=== PATIENT | male | born 1950 | race Two or more races ===

== ENCOUNTER 2023-05-10 04:06 | Day surgery (SDC) | payer OTHER ==
[2023-05-08 15:39] VITALS: BMI 23.3
[2023-05-10] MEDS ORDERED: ceFAZolin SODIUM 1 GM VIAL ONE (08:45)
[2023-05-10] MEDS ORDERED: ONDANSETRON 4 MG/2 ML VIAL ONE (08:45)
[2023-05-10] MEDS ORDERED: LIDOCAINE HCL/PF 2% SDV 5ML VIAL ONE (08:45)
[2023-05-10] MEDS ORDERED: PROPOFOL 40 ML ONE (08:45)
[2023-05-10] MEDS ORDERED: MIDAZOLAM HCL 2 MG/2 ML SINGLE DOSE VIAL ONE (08:45)
[2023-05-10] MEDS ORDERED: ceFAZolin SODIUM 1 GM VIAL IVPB ONE ×2 (09:08→09:28)
[2023-05-10] MEDS ORDERED: LIDOCAINE HCL 1%, 10 MG/ML (20ML VIAL) NR ONE ×3 (09:08→09:33)
[2023-05-10] MEDS ORDERED: HEPARIN NA (PORCINE) 5,000 UNITS/ML 1ML VIAL SQ ONE ×2 (09:09→09:34)
[2023-05-10] MEDS ORDERED: HEPARIN NA (PORCINE) 5,000 UNITS/ML 1ML VIAL ONE (09:12)
[2023-05-10] MEDS ORDERED: LIDOCAINE HCL 1%, 10 MG/ML (10ML VIAL) MDV ONE (09:47)
[2023-05-10] MEDS ORDERED: oxyCODONE HCL 5 MG TABLET PO PRN ×2 (10:00)
[2023-05-10] MEDS ORDERED: ONDANSETRON 4 MG/2 ML VIAL IVPUSH PRN (10:00)
[2023-05-10] MEDS ORDERED: LACTATED RINGERS SOLUTION 1,000 ML IV SCH (10:00)
[2023-05-10 14:54] VITALS: RESP 16; TEMP 97.6
[2023-05-10 14:58] VITALS: BP 134/64; PULSE 74
== END 2023-05-10 12:35 | disposition home or self-care (01) ==
LOC: JASU-SURG 04:06
PROVIDERS: ATTEND Surgery Vascular Surgery
PROC: B41DYZZ Fluoroscopy of Aorta and Bilateral Lower Extremity Arteries using Other Contrast (ICD-10-PCS; principal; 2023-05-10 09:30)
DX: I70.212 Atherosclerosis of native arteries of extremities with intermittent claudication, left leg (principal)
CPT/HCPCS: 76000-TC-FY; 82962; 94010; 94760; C1760; C1769; J1644

== ENCOUNTER 2023-07-04 07:45 | Inpatient (IN) | payer OTHER ==
[2023-07-04] MEDS ORDERED: ACETAMINOPHEN 1000 MG/100 ML BAG IVPB ONE ×2 (08:26→08:47)
[2023-07-04] MEDS ORDERED: LACTATED RINGERS SOLUTION 1000 ML INFUS.BAG IV ONE (08:26)
[2023-07-04] MEDS ORDERED: ALBUTEROL SO4 2.5/IPRATROPIUM 0.5 INH SOL 3 ML VIAL.NEB. NEB SCH (08:30)
[2023-07-04] MEDS ORDERED: ACETAMINOPHEN INJECTION 100 ML IVPB ONE (08:45)
[2023-07-04 09:37] LABS: BASO % 1.1 % (0-2.0); EOS % 6.3 % (0-4.5); HEMATOCRIT 35.7 % (35.4-49); LYMPH % 26.4 % (8-40); MCH 33.8 pg (25.7-33.7); MCHC 33.7 g/dl (32.0-35.9); MEAN CELL VOLUME 100.4 fl (80-96); MEAN PLT VOLUME 9.7 fl (7.5-11.1); NEUT % 56.2 % (42.8-82.8); PLATELET COUNT 120 10^3/uL (134-434); RBC 3.55 M/mm3 (4.00-5.60); RDW 14.3 % (11.9-15.9); WHITE BLOOD COUNT 5.6 K/mm3 (4.0-10.0)
[2023-07-04 09:39] LABS: INR 1.04 (0.83-1.09); PROTHROMBIN TIME (PATIENT) 12.1 SEC (9.7-13.0)
[2023-07-04 09:41] LABS: ACTIVATED PTT 27.9 SECONDS (25.2-36.5)
[2023-07-04 09:58] LABS: POTASSIUM 4.6 mmol/L (3.5-5.1)
[2023-07-04 10:00] LABS: CALCIUM 8.8 mg/dL (8.5-10.1)
[2023-07-04 10:01] LABS: ALBUMIN 3.2 g/dl (3.4-5.0); BLOOD UREA NITROGEN 13.4 mg/dL (7-18)
[2023-07-04 10:04] LABS: CREATININE 1.2 mg/dL (0.55-1.3)
[2023-07-04 10:05] LABS: BILIRUBIN,TOTAL 0.4 mg/dL (0.2-1)
[2023-07-04 10:06] LABS: TOT PROT 6.8 g/dl (6.4-8.2)
[2023-07-04] MEDS ORDERED: LORazepam 0.5 MG TABLET PO PRN ×2 (14:31→15:37)
[2023-07-04] MEDS ORDERED: BUDESONIDE/FORMETEROL FUMARATE 80/4.5 mcg INHALER IH PRN (14:33)
[2023-07-04] MEDS ORDERED: ALBUTEROL SO4 HFA INHALER IH PRN ×2 (14:37→14:40)
[2023-07-04] MEDS: HEPARIN NA (PORCINE) 5,000 UNITS/ML 1ML VIAL SQ SCH ×2 (15:46→21:38)
[2023-07-05] MEDS ORDERED: SODIUM CHLORIDE 1,000 ML IV SCH ×2 (06:00→12:44)
[2023-07-05] MEDS ORDERED: HEPARIN NA (PORCINE) 5,000 UNITS/ML 1ML VIAL ONE (07:17)
[2023-07-05] MEDS ORDERED: POVIDONE-IODINE OINTMENT 10% - 28.4 GM TUBE ONE (07:17)
[2023-07-05] MEDS ORDERED: CEFAZOLIN SODIUM 2 GM in DEXTROSE 5%-WATER 100 ML IVPB ONE (07:45)
[2023-07-05] MEDS ORDERED: HYDROmorphone HCl 2 MG/ML VIAL ONE (10:00)
[2023-07-05] MEDS ORDERED: amLODIPine BESYLATE 10 MG TABLET (FP) PO SCH ×2 (10:00)
[2023-07-05] MEDS ORDERED: LISINOPRIL 20 MG TABLET PO SCH (10:00)
[2023-07-05] MEDS ORDERED: MIDAZOLAM HCL 2 MG/2 ML SINGLE DOSE VIAL ONE (10:00)
[2023-07-05] MEDS ORDERED: LISINOPRIL 10 MG TABLET PO SCH (10:00)
[2023-07-05] MEDS ORDERED: ceFAZolin SODIUM 1 GM VIAL IVPB ONE (10:35)
[2023-07-05] MEDS ORDERED: ROCURONIUM BROMIDE 50 MG/5 ML SYRINGE ONE (11:20)
[2023-07-05] MEDS ORDERED: SUGAMMADEX SODIUM 200 MG/2 ML VIAL ONE (11:56)
[2023-07-05] MEDS ORDERED: PHENYLEPHRINE HCL 10 MG/1 ML SINGLE DOSE VIAL ONE (12:06)
[2023-07-05] MEDS ORDERED: ALBUTEROL SO4 HFA INHALER IH PRN (12:44)
[2023-07-05] MEDS ORDERED: LORazepam 0.5 MG TABLET PO PRN (12:44)
[2023-07-05] MEDS: LACTATED RINGERS SOLUTION 1,000 ML IV SCH (13:00)
[2023-07-05] MEDS ORDERED: BUDESONIDE/FORMETEROL FUMARATE 80/4.5 mcg INHALER IH PRN (13:30)
[2023-07-05] MEDS ORDERED: ACETAMINOPHEN 1000 MG/100 ML BAG IVPB PRN (17:58)
[2023-07-05 21:11] LABS: BASO % 0.3 % (0-2.0); HEMATOCRIT 31.6 % (35.4-49); HEMOGLOBIN 10.6 GM/dL (11.7-16.9); LYMPH % 7.8 % (8-40); MCH 33.3 pg (25.7-33.7); MCHC 33.6 g/dl (32.0-35.9); MEAN PLT VOLUME 9.5 fl (7.5-11.1); MONO % 6.4 % (3.8-10.2); NEUT % 85.5 % (42.8-82.8); PLATELET COUNT 100 10^3/uL (134-434); RBC 3.19 M/mm3 (4.00-5.60); RDW 14.5 % (11.9-15.9); WHITE BLOOD COUNT 8.4 K/mm3 (4.0-10.0)
[2023-07-05 21:34] LABS: POTASSIUM 4.7 mmol/L (3.5-5.1)
[2023-07-05 21:36] LABS: CALCIUM 8.2 mg/dL (8.5-10.1)
[2023-07-05 21:37] LABS: ALBUMIN 2.7 g/dl (3.4-5.0); BLOOD UREA NITROGEN 13.2 mg/dL (7-18)
[2023-07-05] MEDS: CHLORHEXIDINE GLUCONATE 4% CLEANSER FOR DECOLONIZATION TP SCH (21:37)
[2023-07-05] MEDS: MUPIROCIN 2% TOPICAL OINTMENT FOR DECOLONIZATION NS SCH (21:37)
[2023-07-05 21:40] LABS: CREATININE 1.5 mg/dL (0.55-1.3); PHOSPHOROUS 2.8 mg/dL (2.5-4.9)
[2023-07-05 21:41] LABS: TOT PROT 5.7 g/dl (6.4-8.2)
[2023-07-05 21:42] LABS: BILIRUBIN,TOTAL 0.5 mg/dL (0.2-1)
[2023-07-05 21:49] LABS: MAGNESIUM 1.4 mg/dL (1.8-2.4)
[2023-07-05] MEDS ORDERED: MAGNESIUM SULFATE IN WATER 2 GM/50 ML IVPB IVPB ONE (21:58)
[2023-07-06] MEDS: FOLIC ACID 1 MG TABLET (FP) PO SCH (09:04)
[2023-07-06] MEDS: amLODIPine BESYLATE 10 MG TABLET (FP) PO SCH (09:04)
[2023-07-06] MEDS: MULTIVITAMINS (DAILY MVI) TABLET (FP) PO SCH (09:04)
[2023-07-06] MEDS: CLOPIDOGREL BISULFATE 75 MG TABLET (FP) PO SCH (09:05)
[2023-07-06] MEDS: LACTATED RINGERS SOLUTION 1,000 ML IV SCH ×3 (09:05→23:26)
[2023-07-06] MEDS: THIAMINE HCL 100 MG TABLET (FP) PO SCH (09:05)
[2023-07-06] MEDS: MUPIROCIN 2% TOPICAL OINTMENT FOR DECOLONIZATION NS SCH ×2 (09:06→21:24)
[2023-07-06 10:29] LABS: EPI CELLS 3 /uL (0-25.1); HYALINE CASTS 0 /uL (0-3.1); PH,URINE 6.5 (5.0-8.0); URINE APPEARANCE CLEAR; URINE BACTERIA 0 /uL (0-1359); URINE BILIRUBIN NEGATIVE (NEGATIVE); URINE COLOR YELLOW; URINE GLUCOSE (UA) TRACE (NEGATIVE); URINE KETONE NEGATIVE (NEGATIVE); URINE LEUK ESTERASE TRACE (NEGATIVE); URINE NITRITE NEGATIVE (NEGATIVE); URINE PROTEIN NEGATIVE (NEGATIVE); URINE RBC 69 /uL (0-23.9); URINE UROBILINOGEN 0.2 mg/dL (0.2-1.0); URINE WBC 36 /uL (0-25.8)
[2023-07-06] MEDS ORDERED: MAGNESIUM 1GM/D5W - 1 GM/100 ML IVPB IVPB ONE (14:15)
[2023-07-06] MEDS: NICOTINE 14 MG/24 HOURS TOPICAL PATCH TD SCH (16:54)
[2023-07-06] MEDS: CHLORHEXIDINE GLUCONATE 4% CLEANSER FOR DECOLONIZATION TP SCH (21:24)
[2023-07-06] MEDS ORDERED: ACETAMINOPHEN 1000 MG/100 ML BAG IVPB PRN (23:54)
[2023-07-07 07:28] LABS: POTASSIUM 4.1 mmol/L (3.5-5.1)
[2023-07-07 07:36] LABS: ALBUMIN 2.8 g/dl (3.4-5.0); BLOOD UREA NITROGEN 13.3 mg/dL (7-18); CALCIUM 8.2 mg/dL (8.5-10.1); MAGNESIUM 1.6 mg/dL (1.8-2.4)
[2023-07-07 07:39] LABS: CREATININE 0.9 mg/dL (0.55-1.3); PHOSPHOROUS 3.5 mg/dL (2.5-4.9)
[2023-07-07 07:40] LABS: BILIRUBIN,TOTAL 0.6 mg/dL (0.2-1); TOT PROT 5.7 g/dl (6.4-8.2)
[2023-07-07 07:55] LABS: BASO % 0.9 % (0-2.0); HEMATOCRIT 30.6 % (35.4-49); HEMOGLOBIN 10.4 GM/dL (11.7-16.9); LYMPH % 27.5 % (8-40); MCH 33.8 pg (25.7-33.7); MCHC 34.1 g/dl (32.0-35.9); MEAN CELL VOLUME 98.9 fl (80-96); MEAN PLT VOLUME 10.2 fl (7.5-11.1); MONO % 9.9 % (3.8-10.2); NEUT % 58.7 % (42.8-82.8); PLATELET COUNT 86 10^3/uL (134-434); RBC 3.09 M/mm3 (4.00-5.60); RDW 14.6 % (11.9-15.9); WHITE BLOOD COUNT 9.2 K/mm3 (4.0-10.0)
[2023-07-07] MEDS: NICOTINE 14 MG/24 HOURS TOPICAL PATCH TD SCH (10:14)
[2023-07-07] MEDS: amLODIPine BESYLATE 10 MG TABLET (FP) PO SCH (10:15)
[2023-07-07] MEDS: THIAMINE HCL 100 MG TABLET (FP) PO SCH (10:15)
[2023-07-07] MEDS: MULTIVITAMINS (DAILY MVI) TABLET (FP) PO SCH (10:15)
[2023-07-07] MEDS: FOLIC ACID 1 MG TABLET (FP) PO SCH (10:15)
[2023-07-07] MEDS: CLOPIDOGREL BISULFATE 75 MG TABLET (FP) PO SCH (10:15)
[2023-07-07] MEDS: MUPIROCIN 2% TOPICAL OINTMENT FOR DECOLONIZATION NS SCH ×2 (10:16→21:08)
[2023-07-07] MEDS ORDERED: ACETAMINOPHEN 500 MG TABLET (FP) PO PRN (10:59)
[2023-07-07] MEDS: HEPARIN NA (PORCINE) 5,000 UNITS/ML 1ML VIAL SQ SCH (21:07)
[2023-07-07] MEDS: CHLORHEXIDINE GLUCONATE 4% CLEANSER FOR DECOLONIZATION TP SCH (21:07)
[2023-07-08] MEDS ORDERED: ALBUTEROL SO4 HFA INHALER IH PRN (08:53)
[2023-07-08] MEDS ORDERED: BUDESONIDE/FORMETEROL FUMARATE 80/4.5 mcg INHALER IH PRN (08:53)
[2023-07-08] MEDS ORDERED: LORazepam 0.5 MG TABLET PO PRN (08:53)
[2023-07-08] MEDS: MULTIVITAMINS (DAILY MVI) TABLET (FP) PO SCH (09:29)
[2023-07-08] MEDS: amLODIPine BESYLATE 10 MG TABLET (FP) PO SCH (09:29)
[2023-07-08] MEDS: FOLIC ACID 1 MG TABLET (FP) PO SCH (09:30)
[2023-07-08] MEDS: CLOPIDOGREL BISULFATE 75 MG TABLET (FP) PO SCH (09:30)
[2023-07-08] MEDS: HEPARIN NA (PORCINE) 5,000 UNITS/ML 1ML VIAL SQ SCH ×2 (09:30→21:54)
[2023-07-08] MEDS: NICOTINE 14 MG/24 HOURS TOPICAL PATCH TD SCH (09:30)
[2023-07-08] MEDS: MUPIROCIN 2% TOPICAL OINTMENT FOR DECOLONIZATION NS SCH ×2 (14:06→21:55)
[2023-07-08 15:09] VITALS: TEMP 98
[2023-07-08 15:49] VITALS: BMI 22.9
[2023-07-08] MEDS ORDERED: MAGNESIUM SULF 50% (8.12 MEQ/2 ML-1 GM VIAL) IVPB ONE (19:26)
[2023-07-08] MEDS: ACETAMINOPHEN 500 MG TABLET (FP) PO PRN (20:33)
[2023-07-08] MEDS ORDERED: CHLORHEXIDINE GLUCONATE 4% CLEANSER FOR DECOLONIZATION TP SCH (22:00)
[2023-07-09] MEDS: ACETAMINOPHEN 500 MG TABLET (FP) PO PRN (06:22)
[2023-07-09 07:55] LABS: BASO % 0.5 % (0-2.0); EOS % 4.9 % (0-4.5); HEMATOCRIT 32.6 % (35.4-49); HEMOGLOBIN 10.7 GM/dL (11.7-16.9); LYMPH % 23.7 % (8-40); MCH 33.2 pg (25.7-33.7); MCHC 32.8 g/dl (32.0-35.9); MEAN CELL VOLUME 101.3 fl (80-96); MEAN PLT VOLUME 10.8 fl (7.5-11.1); MONO % 12.9 % (3.8-10.2); PLATELET COUNT 135 10^3/uL (134-434); RBC 3.22 M/mm3 (4.00-5.60); RDW 14.4 % (11.9-15.9); WHITE BLOOD COUNT 8.9 K/mm3 (4.0-10.0)
[2023-07-09 07:58] LABS: POTASSIUM 4.6 mmol/L (3.5-5.1)
[2023-07-09 08:01] VITALS: RESP 18
[2023-07-09 08:01] LABS: ALBUMIN 2.9 g/dl (3.4-5.0); BLOOD UREA NITROGEN 16.4 mg/dL (7-18); MAGNESIUM 1.9 mg/dL (1.8-2.4)
[2023-07-09 08:04] LABS: CREATININE 0.9 mg/dL (0.55-1.3); PHOSPHOROUS 4.2 mg/dL (2.5-4.9)
[2023-07-09 08:06] LABS: BILIRUBIN,TOTAL 0.9 mg/dL (0.2-1); TOT PROT 6.3 g/dl (6.4-8.2)
[2023-07-09] MEDS: THIAMINE HCL 100 MG TABLET (FP) PO SCH (09:04)
[2023-07-09] MEDS: HEPARIN NA (PORCINE) 5,000 UNITS/ML 1ML VIAL SQ SCH (09:04)
[2023-07-09] MEDS: FOLIC ACID 1 MG TABLET (FP) PO SCH (09:04)
[2023-07-09] MEDS: NICOTINE 14 MG/24 HOURS TOPICAL PATCH TD SCH (09:05)
[2023-07-09] MEDS: MUPIROCIN 2% TOPICAL OINTMENT FOR DECOLONIZATION NS SCH (09:05)
[2023-07-09] MEDS: amLODIPine BESYLATE 10 MG TABLET (FP) PO SCH (09:05)
[2023-07-09] MEDS: MULTIVITAMINS (DAILY MVI) TABLET (FP) PO SCH (09:06)
[2023-07-09] MEDS: CLOPIDOGREL BISULFATE 75 MG TABLET (FP) PO SCH (09:08)
[2023-07-09] MEDS ORDERED: LISINOPRIL 20 MG TABLET PO SCH (10:00)
[2023-07-09 12:49] VITALS: BP 129/73; PULSE 108
== END 2023-07-09 14:00 | disposition home or self-care (01) | DRG 253 ==
LOC: JER 07:45 → JERBED 11:04 → OBSVTOIN 12:06 → J8W 12:39 → JICU 07-05 15:39
PROVIDERS: ADMIT Internal Medicine; ATTEND Internal Medicine
PROC: 041L4ZJ Bypass Left Femoral Artery to Left Femoral Artery, Percutaneous Endoscopic Approach (ICD-10-PCS; principal; 2023-07-05 09:30)
DX: I74.5 Embolism and thrombosis of iliac artery (principal); F10.230 Alcohol dependence with withdrawal, uncomplicated; I73.9 Peripheral vascular disease, unspecified; F17.210 Nicotine dependence, cigarettes, uncomplicated; J44.9 Chronic obstructive pulmonary disease, unspecified; I10 Essential (primary) hypertension; I49.3 Ventricular premature depolarization; R33.9 Retention of urine, unspecified; R74.01 Elevation of levels of liver transaminase levels
CPT/HCPCS: 36415; 71045-TC-FY; 80053; 81003; 82570; 83605; 83735; 84100; 84300; 85025; 85610; 85730; 86850; 86900; 86901; 86922; 87635; 88304-TC; 88311-TC; 94760; 97116-GP; 97161-GP; 99285-25; C1768; G0378; J1644

== ENCOUNTER 2024-02-04 08:47 | Inpatient (IN) | payer OTHER ==
[2024-02-04 10:27] LABS: BASO % 0.3 % (0-2.0); EOS % 0.2 % (0-4.5); HEMATOCRIT 29.8 % (35.4-49); HEMOGLOBIN 9.6 GM/dL (11.7-16.9); LYMPH % 5.1 % (8-40); MCH 28.3 pg (25.7-33.7); MCHC 32.3 g/dl (32.0-35.9); MEAN CELL VOLUME 87.4 fl (80-96); MEAN PLT VOLUME 8.9 fl (7.5-11.1); MONO % 7.6 % (3.8-10.2); NEUT % 86.8 % (42.8-82.8); PLATELET COUNT 203 10^3/uL (134-434); RBC 3.41 M/mm3 (4.00-5.60); RDW 17.3 % (11.9-15.9); WHITE BLOOD COUNT 16.1 K/mm3 (4.0-10.0)
[2024-02-04 10:34] LABS: INR 1.23 (0.83-1.09); PROTHROMBIN TIME (PATIENT) 14.2 SEC (9.7-13.0)
[2024-02-04 10:36] LABS: ACTIVATED PTT 31.7 SECONDS (25.2-36.5)
[2024-02-04 10:55] LABS: POTASSIUM 3.8 mmol/L (3.5-5.1)
[2024-02-04 11:01] LABS: BLOOD UREA NITROGEN 18.4 mg/dL (7-18); CALCIUM 8.6 mg/dL (8.5-10.1)
[2024-02-04 11:02] LABS: ALBUMIN 2.4 g/dl (3.4-5.0); MAGNESIUM 1.9 mg/dL (1.8-2.4)
[2024-02-04 11:03] LABS: BILIRUBIN,TOTAL 1.4 mg/dL (0.2-1)
[2024-02-04 11:05] LABS: CREATININE 1.1 mg/dL (0.55-1.3); PHOSPHOROUS 2.5 mg/dL (2.5-4.9)
[2024-02-04 11:06] LABS: TOT PROT 7.8 g/dl (6.4-8.2)
[2024-02-04 11:13] LABS: EPI CELLS 27 /uL (0-25.1); HYALINE CASTS 5 /uL (0-3.1); PH,URINE 5.5 (5.0-8.0); URINE APPEARANCE CLEAR; URINE BILIRUBIN 2+ (NEGATIVE); URINE COLOR ORANGE; URINE GLUCOSE (UA) NEGATIVE (NEGATIVE); URINE KETONE TRACE (NEGATIVE); URINE LEUK ESTERASE TRACE (NEGATIVE); URINE NITRITE POSITIVE (NEGATIVE); URINE PROTEIN 1+ (NEGATIVE); URINE RBC 20 /uL (0-23.9); URINE WBC 21 /uL (0-25.8)
[2024-02-04] MEDS ORDERED: AMPICILLIN NA/SULBACTAM NA 3 GM/100 ML BAG IVPB ONE (11:55)
[2024-02-04] MEDS: AMPICILLIN NA/SULBACTAM NA 3 GM in DEXTROSE 5%-WATER 100 ML IVPB ONE (12:20)
[2024-02-04] MEDS ORDERED: CLOPIDOGREL BISULFATE 75 MG TABLET (FP) ONE (14:02)
[2024-02-04] MEDS: SODIUM CHLORIDE 1,000 ML IV SCH (14:05)
[2024-02-04] MEDS: CLOPIDOGREL BISULFATE 75 MG TABLET (FP) PO SCH (14:05)
[2024-02-04] MEDS ORDERED: AMPICILLIN NA/SULBACTAM NA 3 GM in DEXTROSE 5%-WATER 100 ML IVPB SCH (15:00)
[2024-02-04] MEDS ORDERED: ALBUTEROL SO4 HFA INHALER IH PRN (15:51)
[2024-02-04 17:51] VITALS: BMI 22.6
[2024-02-04] MEDS: BUDESONIDE/FORMETEROL FUMARATE 80/4.5 mcg INHALER IH SCH (21:59)
[2024-02-05 08:17] LABS: HEMATOCRIT 26.3 % (35.4-49); HEMOGLOBIN 8.5 GM/dL (11.7-16.9); MCH 28.4 pg (25.7-33.7); MCHC 32.1 g/dl (32.0-35.9); MEAN CELL VOLUME 88.3 fl (80-96); MEAN PLT VOLUME 8.4 fl (7.5-11.1); PLATELET COUNT 190 10^3/uL (134-434); RBC 2.98 M/mm3 (4.00-5.60); RDW 17.7 % (11.9-15.9); WHITE BLOOD COUNT 15.5 K/mm3 (4.0-10.0)
[2024-02-05 08:26] LABS: INR 1.25 (0.83-1.09); PROTHROMBIN TIME (PATIENT) 14.5 SEC (9.7-13.0)
[2024-02-05 09:50] LABS: POTASSIUM 4.1 mmol/L (3.5-5.1)
[2024-02-05 09:55] LABS: ALBUMIN 2.1 g/dl (3.4-5.0); CALCIUM 8.2 mg/dL (8.5-10.1); MAGNESIUM 1.8 mg/dL (1.8-2.4)
[2024-02-05 09:56] LABS: BLOOD UREA NITROGEN 15.4 mg/dL (7-18)
[2024-02-05 09:58] LABS: CREATININE 0.9 mg/dL (0.55-1.3)
[2024-02-05 09:59] LABS: PHOSPHOROUS 3.3 mg/dL (2.5-4.9)
[2024-02-05 10:00] LABS: TOT PROT 6.5 g/dl (6.4-8.2)
[2024-02-05] MEDS: CEFTRIAXONE 1 GM in DEXTROSE 5%-WATER - 50 ML IVPB SCH (10:12)
[2024-02-05] MEDS: LISINOPRIL 20 MG TABLET PO SCH (10:13)
[2024-02-05] MEDS: ENOXAPARIN NA (PORCINE) 40 MG/0.4 ML DISP.SYRIN SQ SCH (10:13)
[2024-02-05] MEDS: amLODIPine BESYLATE 10 MG TABLET (FP) PO SCH (10:13)
[2024-02-05] MEDS: AZITHROMYCIN IVPB 500 MG/250 ML BAG IVPB SCH (12:03)
[2024-02-05] MEDS: AZITHROMYCIN IVPB 500 MG in DEXTROSE 5%-WATER - 250 ML IVPB SCH (12:03)
[2024-02-05] MEDS ORDERED: IBUPROFEN 800 MG/8 ML IJ IVPB PRN (17:06)
[2024-02-05] MEDS: PANTOPRAZOLE SODIUM 40 MG VIAL IVPUSH SCH (17:26)
[2024-02-05 19:32] LABS: SYPHILIS W/ RPR CONF REACTIVE (NONREACTIVE)
[2024-02-05 21:41] LABS: HIV INTERPRETATION PRESUMPTIVE POSITIVE (NEGATIVE)
[2024-02-05] MEDS: LACTATED RINGERS SOLUTION 1,000 ML/1,000 ML INFUS.BAG IV SCH (21:49)
[2024-02-05] MEDS: guaiFENesin/D-METHORPHAN HB 10 ML UNIT-DOSE CUPS PO PRN (21:49)
[2024-02-06] MEDS: NICOTINE 14 MG/24 HOURS TOPICAL PATCH TD SCH (10:18)
[2024-02-06] MEDS: SULFAMETHOXAZOLE/TRIMETHOPRIM 400 MG in DEXTROSE 5%-WATER - 500 ML IVPB SCH (13:20)
[2024-02-06 13:22] LABS: BASO % 0.5 % (0-2.0); EOS % 0.6 % (0-4.5); HEMATOCRIT 25.2 % (35.4-49); HEMOGLOBIN 8.2 GM/dL (11.7-16.9); LYMPH % 9.8 % (8-40); MCH 28.2 pg (25.7-33.7); MCHC 32.5 g/dl (32.0-35.9); MEAN CELL VOLUME 86.6 fl (80-96); MEAN PLT VOLUME 8.7 fl (7.5-11.1); MONO % 10.6 % (3.8-10.2); NEUT % 78.5 % (42.8-82.8); PLATELET COUNT 207 10^3/uL (134-434); RBC 2.91 M/mm3 (4.00-5.60)
[2024-02-06 14:53] VITALS: RESP 18
[2024-02-06] MEDS ORDERED: SULFAMETHOXAZOLE 80 MG/TRIMETHOPRIM 16 MG/ML VIAL IVPB SCH ×2 (18:00)
[2024-02-07] MEDS ORDERED: ACETAMINOPHEN 1000 MG/100 ML BAG IVPB PRN (07:54)
[2024-02-07] MEDS: PANTOPRAZOLE 40 MG TABLET PO SCH (09:26)
[2024-02-07] MEDS: CEFTRIAXONE 2 GM in DEXTROSE 5%-WATER 100 ML IVPB SCH (09:32)
[2024-02-08] MEDS: AZITHROMYCIN 500 MG TABLET PO SCH (09:35)
[2024-02-08] MEDS ORDERED: METHYL SALICYLATE/MENTHOL OINT 30 GM TUBE TP SCH (10:00)
[2024-02-08] MEDS ORDERED: LIDOCAINE 5% TOPICAL PATCH TP SCH (10:00)
[2024-02-08] MEDS: METHYL SALICYLATE/MENTHOL OINT 30 GM TUBE TP SCH (10:30)
[2024-02-08] MEDS ORDERED: LIDOCAINE PATCH REMOVAL MC SCH (22:00)
[2024-02-09 09:07] LABS: BASO % 0.8 % (0-2.0); EOS % 2.5 % (0-4.5); HEMATOCRIT 26.4 % (35.4-49); HEMOGLOBIN 8.5 GM/dL (11.7-16.9); LYMPH % 15.1 % (8-40); MCH 27.8 pg (25.7-33.7); MCHC 32.2 g/dl (32.0-35.9); MEAN CELL VOLUME 86.5 fl (80-96); MEAN PLT VOLUME 8.6 fl (7.5-11.1); MONO % 14.3 % (3.8-10.2); NEUT % 67.3 % (42.8-82.8); PLATELET COUNT 303 10^3/uL (134-434); RBC 3.06 M/mm3 (4.00-5.60); RDW 17.7 % (11.9-15.9); WHITE BLOOD COUNT 9.7 K/mm3 (4.0-10.0)
[2024-02-09 09:22] LABS: POTASSIUM 4.5 mmol/L (3.5-5.1)
[2024-02-09 09:26] LABS: BLOOD UREA NITROGEN 17.3 mg/dL (7-18)
[2024-02-09] MEDS: LISINOPRIL 20 MG TABLET PO SCH (11:34)
[2024-02-09] MEDS: amLODIPine BESYLATE 10 MG TABLET (FP) PO SCH (11:34)
[2024-02-09 15:12] LABS: URIC ACID 5.9 mg/dL (2.6-7.2)
[2024-02-10] MEDS: LACTOBACILLUS ACIDOPHILUS 1 TABLET PO SCH (10:49)
[2024-02-11 06:15] VITALS: TEMP 98.5
[2024-02-11 13:18] VITALS: BP 118/59; PULSE 86
== END 2024-02-11 14:46 | disposition home health service (06) | DRG 871 ==
LOC: JER 08:47 → JERBED 12:53 → J5S 15:56
PROVIDERS: ADMIT Internal Medicine
DX: A41.9 Sepsis, unspecified organism (principal); J18.9 Pneumonia, unspecified organism; J44.0 Chronic obstructive pulmonary disease with (acute) lower respiratory infection; J44.1 Chronic obstructive pulmonary disease with (acute) exacerbation; I10 Essential (primary) hypertension; I73.9 Peripheral vascular disease, unspecified; R74.01 Elevation of levels of liver transaminase levels; F10.90 Alcohol use, unspecified, uncomplicated; Z21 Asymptomatic human immunodeficiency virus [HIV] infection status
CPT/HCPCS: 0241U-QW; 36415; 71046-TC-FY; 71275-TC; 73560-TC-RT-FY; 74177-TC; 80048; 80053; 81003; 83690; 83735; 84100; 84484; 84550; 85025; 85027; 85610; 85730; 86359; 86360; 86593; 86704; 86780; 86803; 86850; 86900; 86901; 87040; 87070; 87086; 87205; 87340; 87389; 87517; 87899; 93005; 93010; 94761; 97116-GP; 97161-GP; 99285-25; Q9967

== ENCOUNTER 2025-02-06 11:35 | Inpatient (IN) | payer OTHER ==
[2025-02-06] MEDS ORDERED: MAGNESIUM SULFATE IN WATER 2 GM/50 ML IVPB IVPB ONE (12:08)
[2025-02-06] MEDS ORDERED: ALBUTEROL SO4 2.5/IPRATROPIUM 0.5 INH SOL 3 ML VIAL.NEB. NEB ONE (12:08)
[2025-02-06] MEDS: ALBUTEROL SO4 2.5/IPRATROPIUM 0.5 INH SOL 3 ML VIAL.NEB. NEB SCH ×2 (12:25→20:38)
[2025-02-06] MEDS: MAGNESIUM SULFATE IN WATER 2 GM/50 ML IVPB IVPB ONE (12:25)
[2025-02-06] MEDS ORDERED: CEFTRIAXONE 1 G/50 ML PREMIX 50 ML IVPB ONE (13:13)
[2025-02-06] MEDS ORDERED: AZITHROMYCIN IVPB 500 MG/250 ML BAG IVPB ONE (13:13)
[2025-02-06 13:51] LABS: HEMATOCRIT 27.2 % (35.4-49); HEMOGLOBIN 8.7 GM/dL (11.7-16.9); MCHC 32.1 g/dl (32.0-35.9); MEAN CELL VOLUME 90.6 fl (80-96); MEAN PLT VOLUME 8.8 fl (7.5-11.1); PLATELET COUNT 138 10^3/uL (134-434); WHITE BLOOD COUNT 9.9 K/mm3 (4.0-10.0)
[2025-02-06] MEDS: AZITHROMYCIN IVPB 500 MG in DEXTROSE 5%-WATER - 250 ML IVPB ONE (13:51)
[2025-02-06 14:48] LABS: CALCIUM 8.7 mg/dL (8.5-10.1)
[2025-02-06 14:49] LABS: ALBUMIN 3.3 g/dl (3.4-5.0)
[2025-02-06 14:53] LABS: BILIRUBIN,TOTAL 0.5 mg/dL (0.2-1); TOT PROT 7.6 g/dl (6.4-8.2)
[2025-02-06 14:55] LABS: ANISOCYTOSIS 1+; MACROCYTOSIS 0
[2025-02-06 16:04] VITALS: BMI 23.8
[2025-02-06 23:04] LABS: EPI CELLS 7 /uL (0-25.1); HYALINE CASTS 0 /uL (0-3.1); URINE APPEARANCE CLEAR; URINE BACTERIA 48 /uL (0-1359); URINE BILIRUBIN NEGATIVE (NEGATIVE); URINE COLOR YELLOW; URINE GLUCOSE (UA) NEGATIVE (NEGATIVE); URINE KETONE NEGATIVE (NEGATIVE); URINE LEUK ESTERASE TRACE (NEGATIVE); URINE NITRITE NEGATIVE (NEGATIVE); URINE PROTEIN NEGATIVE (NEGATIVE); URINE RBC 27 /uL (0-23.9); URINE UROBILINOGEN 0.2 mg/dL (0.2-1.0); URINE WBC 80 /uL (0-25.8)
[2025-02-06] MEDS: guaiFENesin 200 MG/10 ML 10 ML UNIT-DOSE CUPS PO PRN (23:57)
[2025-02-07] MEDS: GEMFIBROZIL 600 MG TABLET (FP) PO SCH (06:02)
[2025-02-07] MEDS: TAMSULOSIN HCL 0.4 MG CAP PO SCH (08:58)
[2025-02-07] MEDS: ENOXAPARIN NA (PORCINE) 40 MG/0.4 ML DISP.SYRIN SQ SCH (08:59)
[2025-02-07] MEDS: CLOPIDOGREL BISULFATE 75 MG TABLET (FP) PO SCH (08:59)
[2025-02-07] MEDS: CEFTRIAXONE 1 G/50 ML PREMIX 50 ML IVPB SCH (08:59)
[2025-02-07] MEDS: ALLOPURINOL 100 MG TABLET (FP) PO SCH (08:59)
[2025-02-07] MEDS: LISINOPRIL 20 MG TABLET PO SCH (08:59)
[2025-02-07] MEDS: amLODIPine BESYLATE 10 MG TABLET (FP) PO SCH (08:59)
[2025-02-07] MEDS: LORATADINE 10 MG TABLET PO SCH (08:59)
[2025-02-07] MEDS: predniSONE 20 MG TABLET (UD) PO SCH (08:59)
[2025-02-07] MEDS: AZITHROMYCIN IVPB 500 MG/250 ML BAG IVPB SCH (09:00)
[2025-02-07] MEDS: FLUTICASONE PROP 0.05% 16 GM NASAL SPRAY NS SCH (09:53)
[2025-02-07] MEDS ORDERED: methylPREDNISolone NA SUCC 40 MG/1 ML VIAL IVPUSH SCH (10:00)
[2025-02-07] MEDS ORDERED: guaiFENesin/D-METHORPHAN HB 10 ML UNIT-DOSE CUPS PO PRN (12:38)
[2025-02-07 14:51] LABS: HEMATOCRIT 24.5 % (35.4-49); HEMOGLOBIN 7.9 GM/dL (11.7-16.9); MCH 28.9 pg (25.7-33.7); MCHC 32.1 g/dl (32.0-35.9); MEAN CELL VOLUME 89.9 fl (80-96); MEAN PLT VOLUME 9.6 fl (7.5-11.1); PLATELET COUNT 140 10^3/uL (134-434); RBC 2.73 M/mm3 (4.00-5.60); RDW 16.8 % (11.9-15.9); WHITE BLOOD COUNT 8.5 K/mm3 (4.0-10.0)
[2025-02-07 15:09] LABS: POTASSIUM 5.1 mmol/L (3.5-5.1)
[2025-02-07 15:11] LABS: ALBUMIN 3.2 g/dl (3.4-5.0); BLOOD UREA NITROGEN 30.7 mg/dL (7-18); CALCIUM 8.6 mg/dL (8.5-10.1); MAGNESIUM 1.9 mg/dL (1.8-2.4)
[2025-02-07 15:15] LABS: PHOSPHOROUS 3.4 mg/dL (2.5-4.9)
[2025-02-07 15:16] LABS: BILIRUBIN,TOTAL 0.3 mg/dL (0.2-1); TOT PROT 7.4 g/dl (6.4-8.2)
[2025-02-07 15:26] LABS: CREATININE 1.4 mg/dL (0.55-1.3)
[2025-02-07 15:31] LABS: ANISOCYTOSIS 1+; MACROCYTOSIS 0
[2025-02-07] MEDS: TRIAMCINOLONE ACET 0.1% OINT 15 GM TUBE TP SCH (16:02)
[2025-02-07] MEDS: MELATONIN 5 MG TABLETS PO PRN (21:04)
[2025-02-08 10:38] VITALS: BP 130/64; RESP 18; TEMP 97.5
[2025-02-08 12:23] VITALS: PULSE 89
== END 2025-02-08 15:10 | disposition home or self-care (01) | DRG 190 ==
LOC: JER 11:35 → JERBED 13:12 → J5S 15:35
PROVIDERS: ADMIT Student in an Organized Health Care Education/Training Program; ATTEND Internal Medicine
DX: J44.0 Chronic obstructive pulmonary disease with (acute) lower respiratory infection (principal); J18.9 Pneumonia, unspecified organism; J44.1 Chronic obstructive pulmonary disease with (acute) exacerbation; I10 Essential (primary) hypertension; I73.9 Peripheral vascular disease, unspecified; Z21 Asymptomatic human immunodeficiency virus [HIV] infection status
CPT/HCPCS: 0241U-QW; 36415; 71045-TC-FY; 80053; 81003; 82962; 83036; 83735; 84100; 85025; 87899; 93005; 93010; 94640; 94761; 99285-25

== ENCOUNTER 2025-03-01 18:43 | Inpatient (IN) | payer OTHER ==
[2025-03-01] MEDS: ALBUTEROL SO4 2.5/IPRATROPIUM 0.5 INH SOL 3 ML VIAL.NEB. NEB SCH (19:10)
[2025-03-01] MEDS ORDERED: methylPREDNISolone NA SUCC 125 MG/2 ML VIAL ONE (19:26)
[2025-03-01] MEDS: methylPREDNISolone NA SUCC 125 MG/2 ML VIAL IVPUSH ONE (19:43)
[2025-03-01 19:48] LABS: VENOUS BASE EXCESS 0.1 mmol/L (-2-2); VENOUS PCO2 54.9 mmHg (38-52); VENOUS PH 7.306 (7.310-7.410)
[2025-03-01 19:50] LABS: ABSOLUTE IMMATURE GRANULOCYTES 0.01 x10^3/uL (0.0-0.031); BASOPHILS # 0.05 x10^3/uL (0.01-0.08); EOSINOPHIL % 13.8 % (0.8-7.0); EOSINOPHILS # 0.86 x10^3/uL (0.04-0.54); HEMATOCRIT 25.8 % (40.1-51.0); HEMOGLOBIN 7.6 g/dL (13.7-17.5); MCHC 29.5 g/dl (32.3-36.5); MEAN CELL VOLUME 88.7 fl (79.0-92.2); MEAN PLT VOLUME 12.1 fl (9.4-12.4); MONOCYTE # 0.63 x10^3/uL (0.30-0.82); MONOCYTE % 10.1 % (5.3-12.2); PLATELET COUNT 163 x10^3/uL (163-337); RDW 17.1 % (12.2-16.6)
[2025-03-01 19:55] LABS: INR 1.03 (0.83-1.09); PROTHROMBIN TIME (PATIENT) 11.2 SEC (9.7-13.0)
[2025-03-01 19:57] LABS: ACTIVATED PTT 30.2 SECONDS (25.2-36.5)
[2025-03-01] MEDS ORDERED: PIPERACILLIN/TAZOB 4.5 GM 4.5 GM/100 ML BAG IVPB ONE (19:58)
[2025-03-01] MEDS: PIPERACILLIN/TAZOB 4.5 GM 4.5 GM in DEXTROSE 5%-WATER 100 ML IVPB ONE (20:08)
[2025-03-01 20:09] LABS: POTASSIUM 4.7 mmol/L (3.5-5.1)
[2025-03-01 20:11] LABS: CALCIUM 8.9 mg/dL (8.5-10.1)
[2025-03-01 20:12] LABS: ALBUMIN 3.3 g/dl (3.4-5.0); BLOOD UREA NITROGEN 18.2 mg/dL (7-18)
[2025-03-01 20:15] LABS: CREATININE 0.8 mg/dL (0.55-1.3)
[2025-03-01 20:17] LABS: BILIRUBIN,TOTAL 0.3 mg/dL (0.2-1); TOT PROT 6.9 g/dl (6.4-8.2)
[2025-03-01] MEDS ORDERED: AZITHROMYCIN IVPB 500 MG/250 ML BAG IVPB ONE (20:48)
[2025-03-01] MEDS ORDERED: DOCUSATE SODIUM 100 MG CAPSULE (FP) PO PRN (21:01)
[2025-03-01] MEDS: AZITHROMYCIN IVPB 500 MG in DEXTROSE 5%-WATER - 250 ML IVPB ONE (21:05)
[2025-03-01] MEDS ORDERED: ALBUTEROL SO4 2.5/IPRATROPIUM 0.5 INH SOL 3 ML VIAL.NEB. NEB PRN (21:09)
[2025-03-01] MEDS: ACETAMINOPHEN 325 MG TABLET (FP) PO ONE (21:10)
[2025-03-01] MEDS ORDERED: VANCOMYCIN 1 GM PREMIX (F) 1 GM/200 ML BAG ONE (22:07)
[2025-03-01] MEDS: VANCOMYCIN 1,000 MG in DEXTROSE 5%-WATER - 250 ML IVPB ONE (22:33)
[2025-03-01] MEDS: ACETAMINOPHEN 1000 MG/100 ML BAG IVPB ONE (23:21)
[2025-03-02 01:51] VITALS: BMI 23.8
[2025-03-02] MEDS: methylPREDNISolone NA SUCC 40 MG/1 ML VIAL IVPUSH SCH (02:35)
[2025-03-02] MEDS: ALBUTEROL SO4 2.5/IPRATROPIUM 0.5 INH SOL 3 ML VIAL.NEB. NEB SCH (03:00)
[2025-03-02] MEDS: ACETAMINOPHEN 1000 MG/100 ML BAG IVPB ONE (03:35)
[2025-03-02] MEDS: PIPERACILLIN/TAZOB 3.375 GM 50 ML IVPB SCH (04:09)
[2025-03-02] MEDS: ALLOPURINOL 100 MG TABLET (FP) PO SCH (09:34)
[2025-03-02] MEDS: TAMSULOSIN HCL 0.4 MG CAP PO SCH (09:34)
[2025-03-02] MEDS: LORATADINE 10 MG TABLET PO SCH (09:34)
[2025-03-02] MEDS ORDERED: CLOPIDOGREL BISULFATE 75 MG TABLET (FP) PO SCH (10:00)
[2025-03-02] MEDS ORDERED: HEPARIN NA (PORCINE) 5,000 UNITS/ML 1ML VIAL SQ SCH (10:00)
[2025-03-02] MEDS ORDERED: ENOXAPARIN NA (PORCINE) 40 MG/0.4 ML DISP.SYRIN SQ SCH (10:00)
[2025-03-02] MEDS: guaiFENesin/D-METHORPHAN TAB.ER.12H PO SCH (11:07)
[2025-03-02] MEDS: TRIAMCINOLONE ACET 0.1% OINT 15 GM TUBE TP SCH (11:08)
[2025-03-02] MEDS: HEPARIN NA (PORCINE) 5,000 UNITS/ML 1ML VIAL SQ SCH (13:24)
[2025-03-02] MEDS: AZITHROMYCIN IVPB 500 MG/250 ML BAG IVPB SCH (13:25)
[2025-03-02] MEDS: VANCOMYCIN 1 GM PREMIX (F) 1 GM/200 ML BAG IVPB SCH (16:16)
[2025-03-02] MEDS: CLOPIDOGREL BISULFATE 75 MG TABLET (FP) PO SCH (18:02)
[2025-03-02] MEDS: ACETAMINOPHEN 325 MG TABLET (FP) PO PRN (21:45)
[2025-03-03 08:26] LABS: HEMOGLOBIN 6.7 g/dL (13.7-17.5); PLATELET COUNT 158 x10^3/uL (163-337)
[2025-03-03 08:32] LABS: MCHC 29.1 g/dl (32.3-36.5); MEAN CELL VOLUME 88.8 fl (79.0-92.2); MEAN PLT VOLUME 11.4 fl (9.4-12.4); RDW 16.9 % (12.2-16.6)
[2025-03-03 08:49] LABS: POTASSIUM 5.2 mmol/L (3.5-5.1)
[2025-03-03 09:05] LABS: CALCIUM 8.4 mg/dL (8.5-10.1)
[2025-03-03 09:06] LABS: ALBUMIN 3.3 g/dl (3.4-5.0); BLOOD UREA NITROGEN 33.3 mg/dL (7-18)
[2025-03-03 09:10] LABS: BILIRUBIN,TOTAL 0.6 mg/dL (0.2-1); TOT PROT 6.6 g/dl (6.4-8.2)
[2025-03-03] MEDS: LISINOPRIL 10 MG TABLET PO SCH (10:52)
[2025-03-03] MEDS: FLUTICASONE PROP 0.05% 16 GM NASAL SPRAY NS PRN (10:52)
[2025-03-03] MEDS: CEFTRIAXONE 1 G/50 ML PREMIX 50 ML IVPB SCH (10:53)
[2025-03-03] MEDS: PIPERACILLIN/TAZOB 3.375 GM 3.375 GM in DEXTROSE 5%-WATER - 50 ML IVPB SCH (13:50)
[2025-03-03] MEDS: VANCOMYCIN 1,000 MG in DEXTROSE 5%-WATER - 250 ML IVPB SCH (13:52)
[2025-03-04 08:05] LABS: HEMATOCRIT 27.1 % (40.1-51.0); MCHC 29.5 g/dl (32.3-36.5); PLATELET COUNT 190 x10^3/uL (163-337); RDW 16.6 % (12.2-16.6)
[2025-03-04 08:07] LABS: CALCIUM 8.8 mg/dL (8.5-10.1)
[2025-03-04 08:08] LABS: ALBUMIN 3.5 g/dl (3.4-5.0); BLOOD UREA NITROGEN 39.1 mg/dL (7-18); CREATININE 1.1 mg/dL (0.55-1.3)
[2025-03-04 08:09] LABS: BILIRUBIN,TOTAL 0.5 mg/dL (0.2-1)
[2025-03-04 08:10] LABS: TOT PROT 7.2 g/dl (6.4-8.2)
[2025-03-05 07:57] LABS: ABSOLUTE IMMATURE GRANULOCYTES 0.04 x10^3/uL (0.0-0.031); HEMATOCRIT 28.3 % (40.1-51.0); HEMOGLOBIN 8.3 g/dL (13.7-17.5); MCHC 29.3 g/dl (32.3-36.5); MEAN CELL VOLUME 87.9 fl (79.0-92.2); MEAN PLT VOLUME 11.2 fl (9.4-12.4); MONOCYTE # 0.43 x10^3/uL (0.30-0.82); MONOCYTE % 5.5 % (5.3-12.2); PLATELET COUNT 195 x10^3/uL (163-337); RDW 16.4 % (12.2-16.6)
[2025-03-05 08:05] LABS: POTASSIUM 4.8 mmol/L (3.5-5.1)
[2025-03-05 08:07] LABS: BLOOD UREA NITROGEN 32.8 mg/dL (7-18); CALCIUM 9.1 mg/dL (8.5-10.1)
[2025-03-05 08:08] LABS: ALBUMIN 3.4 g/dl (3.4-5.0)
[2025-03-05 08:12] LABS: BILIRUBIN,TOTAL 0.4 mg/dL (0.2-1); TOT PROT 6.9 g/dl (6.4-8.2)
[2025-03-05] MEDS: methylPREDNISolone NA SUCC 40 MG/1 ML VIAL IVPUSH SCH (21:38)
[2025-03-06 11:47] VITALS: RESP 18
[2025-03-07 08:55] LABS: ABSOLUTE IMMATURE GRANULOCYTES 0.03 x10^3/uL (0.0-0.031); HEMATOCRIT 30.1 % (40.1-51.0); HEMOGLOBIN 8.9 g/dL (13.7-17.5); MCHC 29.6 g/dl (32.3-36.5); MEAN CELL VOLUME 85.8 fl (79.0-92.2); MEAN PLT VOLUME 11.1 fl (9.4-12.4); MONOCYTE # 0.68 x10^3/uL (0.30-0.82); MONOCYTE % 11.2 % (5.3-12.2); PLATELET COUNT 218 x10^3/uL (163-337); RDW 16.6 % (12.2-16.6)
[2025-03-07 09:18] LABS: POTASSIUM 4.8 mmol/L (3.5-5.1)
[2025-03-07 09:20] LABS: ALBUMIN 3.2 g/dl (3.4-5.0); CALCIUM 9.4 mg/dL (8.5-10.1)
[2025-03-07 09:21] LABS: BLOOD UREA NITROGEN 26.7 mg/dL (7-18)
[2025-03-07 09:24] LABS: CREATININE 0.9 mg/dL (0.55-1.3)
[2025-03-07 09:25] LABS: BILIRUBIN,TOTAL 0.5 mg/dL (0.2-1); TOT PROT 6.3 g/dl (6.4-8.2)
[2025-03-08 09:30] LABS: ABSOLUTE IMMATURE GRANULOCYTES 0.03 x10^3/uL (0.0-0.031); HEMATOCRIT 32.9 % (40.1-51.0); HEMOGLOBIN 9.7 g/dL (13.7-17.5); MCHC 29.5 g/dl (32.3-36.5); MEAN CELL VOLUME 85.7 fl (79.0-92.2); MEAN PLT VOLUME 11.4 fl (9.4-12.4); MONOCYTE # 0.64 x10^3/uL (0.30-0.82); PLATELET COUNT 249 x10^3/uL (163-337); RDW 16.6 % (12.2-16.6)
[2025-03-08] MEDS: TRIAMCINOLONE ACET 0.1% OINT 80 GM TUBE TP SCH (13:36)
[2025-03-08 15:07] VITALS: BP 126/86; PULSE 88; TEMP 97.8
== END 2025-03-08 15:32 | disposition home or self-care (01) | DRG 190 ==
LOC: JER 18:43 → JERBED 19:50 → J8W 03-02 01:22
PROVIDERS: ADMIT Internal Medicine; ATTEND Internal Medicine
PROC: 30233N1 Transfusion of Nonautologous Red Blood Cells into Peripheral Vein, Percutaneous Approach (ICD-10-PCS; principal; 2025-03-03)
DX: J44.0 Chronic obstructive pulmonary disease with (acute) lower respiratory infection (principal); J18.9 Pneumonia, unspecified organism; E87.20 Acidosis, unspecified; I10 Essential (primary) hypertension; I73.9 Peripheral vascular disease, unspecified; E78.5 Hyperlipidemia, unspecified; E11.9 Type 2 diabetes mellitus without complications; J44.1 Chronic obstructive pulmonary disease with (acute) exacerbation; D64.9 Anemia, unspecified
CPT/HCPCS: 0241U-QW; 36415; 36430; 71045-TC-FY; 71260-TC; 80053; 82272; 82803; 83615; 83735; 84484; 85025; 85610; 85730; 86850; 86900; 86901; 86922; 93005; 93010; 93306-TC; 94010; 94640; 94761; 99285-25; J0131; J1644; P9038; P9058; Q9967

== ENCOUNTER 2025-04-15 11:39 | Inpatient (IN) | payer OTHER ==
[2025-04-15] MEDS ORDERED: methylPREDNISolone NA SUCC 125 MG/2 ML VIAL ONE (12:10)
[2025-04-15] MEDS: methylPREDNISolone NA SUCC 125 MG/2 ML VIAL IVPB ONE (12:38)
[2025-04-15] MEDS: ALBUTEROL SO4 2.5/IPRATROPIUM 0.5 INH SOL 3 ML VIAL.NEB. NEB SCH (12:38)
[2025-04-15 12:43] LABS: ABSOLUTE IMMATURE GRANULOCYTES 0.03 x10^3/uL (0.0-0.031); BASOPHILS # 0.08 x10^3/uL (0.01-0.08); EOSINOPHIL % 3.3 % (0.8-7.0); EOSINOPHILS # 0.23 x10^3/uL (0.04-0.54); HEMATOCRIT 22.3 % (40.1-51.0); MCHC 26.9 g/dl (32.3-36.5); MEAN CELL VOLUME 76.9 fl (79.0-92.2); MONOCYTE % 17.1 % (5.3-12.2); PLATELET COUNT 191 x10^3/uL (163-337); RDW 22.1 % (12.2-16.6)
[2025-04-15 13:03] LABS: POTASSIUM 4.7 mmol/L (3.5-5.1)
[2025-04-15 13:05] LABS: CALCIUM 9.1 mg/dL (8.5-10.1)
[2025-04-15 13:06] LABS: ALBUMIN 3.4 g/dl (3.4-5.0); MAGNESIUM 2.1 mg/dL (1.8-2.4); VENOUS BASE EXCESS 3.6 mmol/L (-2-2); VENOUS O2 SATURATION 44.9 % (70-80); VENOUS PCO2 54.6 mmHg (38-52); VENOUS PH 7.352 (7.310-7.410)
[2025-04-15 13:09] LABS: BLOOD UREA NITROGEN 18.5 mg/dL (7-18); CREATININE 0.9 mg/dL (0.55-1.3)
[2025-04-15 13:11] LABS: BILIRUBIN,TOTAL 0.6 mg/dL (0.2-1); TOT PROT 6.8 g/dl (6.4-8.2)
[2025-04-15 14:04] LABS: INR 1.08 (0.83-1.09); PROTHROMBIN TIME (PATIENT) 11.8 SEC (9.7-13.0)
[2025-04-15 14:07] LABS: ACTIVATED PTT 26.7 SECONDS (25.2-36.5)
[2025-04-15 19:00] VITALS: BMI 26.3
[2025-04-15] MEDS ORDERED: ALBUTEROL SO4 HFA INHALER IH PRN (20:57)
[2025-04-15] MEDS ORDERED: methylPREDNISolone NA SUCC 40 MG/1 ML VIAL IVPUSH SCH (22:00)
[2025-04-15] MEDS: methylPREDNISolone NA SUCC 40 MG/1 ML VIAL IVPUSH SCH (22:02)
[2025-04-15] MEDS: FUROSEMIDE 40 MG/4 ML INJECTABLE VIAL IVPUSH SCH (22:02)
[2025-04-15] MEDS: MELATONIN 5 MG TABLETS PO PRN (22:04)
[2025-04-15] MEDS: PANTOPRAZOLE 40 MG TABLET PO SCH (22:04)
[2025-04-15] MEDS: BUDESONIDE/FORMETEROL FUMARATE 160/4.5 mcg INHALER IH SCH (22:34)
[2025-04-16] MEDS ORDERED: methylPREDNISolone NA SUCC 40 MG/1 ML VIAL IVPUSH SCH (02:00)
[2025-04-16] MEDS: ACETAMINOPHEN 500 MG TABLET (FP) PO PRN (05:02)
[2025-04-16] MEDS: amLODIPine BESYLATE 10 MG TABLET (FP) PO SCH (09:49)
[2025-04-16] MEDS: TAMSULOSIN HCL 0.4 MG CAP PO SCH (09:49)
[2025-04-16] MEDS: FERROUS SO4 325 MG TABLET (FP) PO SCH (09:49)
[2025-04-16] MEDS: LISINOPRIL 20 MG TABLET PO SCH (09:49)
[2025-04-16 13:22] LABS: HEMATOCRIT 24.5 % (40.1-51.0); HEMOGLOBIN 6.9 g/dL (13.7-17.5); MCHC 28.2 g/dl (32.3-36.5); MEAN CELL VOLUME 76.6 fl (79.0-92.2); PLATELET COUNT 211 x10^3/uL (163-337); RDW 21.2 % (12.2-16.6)
[2025-04-16] MEDS: IRON SUCROSE INJECTION 200 MG in SODIUM CHLORIDE 100 ML IVPB ONE (14:27)
[2025-04-17 14:27] LABS: ABSOLUTE IMMATURE GRANULOCYTES 0.11 x10^3/uL (0.0-0.031); HEMATOCRIT 26.6 % (40.1-51.0); MCHC 30.1 g/dl (32.3-36.5); MEAN CELL VOLUME 77.3 fl (79.0-92.2); MONOCYTE # 0.46 x10^3/uL (0.30-0.82); MONOCYTE % 5.5 % (5.3-12.2); PLATELET COUNT 205 x10^3/uL (163-337); RDW 21.3 % (12.2-16.6)
[2025-04-17 14:53] LABS: POTASSIUM 4.6 mmol/L (3.5-5.1)
[2025-04-17 14:55] LABS: ALBUMIN 3.3 g/dl (3.4-5.0); BLOOD UREA NITROGEN 31.3 mg/dL (7-18); CALCIUM 9.3 mg/dL (8.5-10.1)
[2025-04-17 14:59] LABS: CREATININE 1.2 mg/dL (0.55-1.3)
[2025-04-17 15:00] LABS: BILIRUBIN,TOTAL 0.4 mg/dL (0.2-1); TOT PROT 6.7 g/dl (6.4-8.2)
[2025-04-18] MEDS: IRON SUCROSE INJECTION 200 MG in SODIUM CHLORIDE 100 ML IVPB ONE (10:24)
[2025-04-18] MEDS: TAMSULOSIN HCL 0.4 MG CAP PO ONE (11:23)
[2025-04-19 08:21] LABS: POTASSIUM 4.7 mmol/L (3.5-5.1)
[2025-04-19 08:23] LABS: ALBUMIN 3.6 g/dl (3.4-5.0); BLOOD UREA NITROGEN 30.5 mg/dL (7-18); CALCIUM 9.7 mg/dL (8.5-10.1)
[2025-04-19] MEDS: TAMSULOSIN HCL 0.4 MG CAP PO SCH (08:26)
[2025-04-19 08:28] LABS: BILIRUBIN,TOTAL 0.4 mg/dL (0.2-1)
[2025-04-20 10:06] LABS: ABSOLUTE IMMATURE GRANULOCYTES 0.17 x10^3/uL (0.0-0.031); BASOPHILS # 0.02 x10^3/uL (0.01-0.08); EOSINOPHIL % 0.8 % (0.8-7.0); EOSINOPHILS # 0.08 x10^3/uL (0.04-0.54); HEMATOCRIT 31.9 % (40.1-51.0); MCHC 28.2 g/dl (32.3-36.5); MEAN CELL VOLUME 81.6 fl (79.0-92.2); MONOCYTE # 0.93 x10^3/uL (0.30-0.82); MONOCYTE % 9.6 % (5.3-12.2); PLATELET COUNT 208 x10^3/uL (163-337); RDW 24.4 % (12.2-16.6)
[2025-04-20] MEDS: PEG 3350/NA SULF BICARB CL/KCL 4000 ML SOLN.RECON PO ONE (16:38)
[2025-04-20] MEDS: IRON SUCROSE INJECTION 200 MG in SODIUM CHLORIDE 100 ML IVPB ONE (17:15)
[2025-04-20] MEDS: BISACODYL 5 MG TABLET.DR (FP) PO ONE (21:18)
[2025-04-21 08:06] LABS: ABSOLUTE IMMATURE GRANULOCYTES 0.14 x10^3/uL (0.0-0.031); BASOPHILS # 0.01 x10^3/uL (0.01-0.08); EOSINOPHIL % 0.1 % (0.8-7.0); EOSINOPHILS # 0.01 x10^3/uL (0.04-0.54); HEMATOCRIT 32.4 % (40.1-51.0); HEMOGLOBIN 9.4 g/dL (13.7-17.5); MEAN CELL VOLUME 80.6 fl (79.0-92.2); MONOCYTE # 0.49 x10^3/uL (0.30-0.82); MONOCYTE % 6.1 % (5.3-12.2); PLATELET COUNT 207 x10^3/uL (163-337); RDW 25.7 % (12.2-16.6)
[2025-04-21 08:18] LABS: INR 1.09 (0.83-1.09); PROTHROMBIN TIME (PATIENT) 11.9 SEC (9.7-13.0)
[2025-04-21 08:26] LABS: POTASSIUM 4.2 mmol/L (3.5-5.1)
[2025-04-21 08:32] LABS: ALBUMIN 3.4 g/dl (3.4-5.0); CALCIUM 9.5 mg/dL (8.5-10.1)
[2025-04-21 08:36] LABS: CREATININE 0.9 mg/dL (0.55-1.3)
[2025-04-21 08:37] LABS: BILIRUBIN,TOTAL 0.6 mg/dL (0.2-1); TOT PROT 6.3 g/dl (6.4-8.2)
[2025-04-21 14:14] VITALS: RESP 18
[2025-04-22 07:34] VITALS: TEMP 98.1
[2025-04-22] MEDS: methylPREDNISolone NA SUCC 40 MG/1 ML VIAL IVPUSH SCH (11:44)
[2025-04-22 14:12] VITALS: BP 118/56; PULSE 70
== END 2025-04-22 17:30 | disposition home or self-care (01) | DRG 812 ==
LOC: JER 11:39 → JERBED 16:57 → J7W 17:40 → OBSVTOIN 18:32
PROVIDERS: ADMIT Internal Medicine; ATTEND Internal Medicine
PROC: 30233N1 Transfusion of Nonautologous Red Blood Cells into Peripheral Vein, Percutaneous Approach (ICD-10-PCS; principal; 2025-04-15)
PROC: 0DB98ZX Excision of Duodenum, Via Natural or Artificial Opening Endoscopic, Diagnostic (ICD-10-PCS; 2025-04-15)
PROC: 0DB68ZX Excision of Stomach, Via Natural or Artificial Opening Endoscopic, Diagnostic (ICD-10-PCS; 2025-04-15)
PROC: 0DBK8ZZ Excision of Ascending Colon, Via Natural or Artificial Opening Endoscopic (ICD-10-PCS; 2025-04-15)
DX: D64.9 Anemia, unspecified (principal); J44.1 Chronic obstructive pulmonary disease with (acute) exacerbation; N40.0 Benign prostatic hyperplasia without lower urinary tract symptoms; I10 Essential (primary) hypertension; E78.5 Hyperlipidemia, unspecified; I25.10 Atherosclerotic heart disease of native coronary artery without angina pectoris; Z21 Asymptomatic human immunodeficiency virus [HIV] infection status; E11.51 Type 2 diabetes mellitus with diabetic peripheral angiopathy without gangrene; R33.9 Retention of urine, unspecified; Z99.81 Dependence on supplemental oxygen; K29.60 Other gastritis without bleeding; D50.9 Iron deficiency anemia, unspecified; K57.30 Diverticulosis of large intestine without perforation or abscess without bleeding
CPT/HCPCS: 0241U-QW; 36415; 36430; 71045-TC-FY; 80053; 82272; 82728; 82803; 82962; 83540; 83550; 83615; 83735; 84484; 85025; 85027; 85610; 85730; 86850; 86900; 86901; 86922; 88305-TC; 88342-TC; 93005; 93010; 99285-25; G0378; J1756; P9038; P9058